=== PATIENT | male | born 1955 | race Asian ===

== ENCOUNTER → 2017-04-30 | Outpatient (CLI) | payer OTHER ==
[~2017-04-30] MED LIST: ALBU8.5H8 IH; ALEN35TA PO; AMLO5TAB66 PO; ASPI81TA33 PO; CLOP75 PO; FISH1CAP27 PO; FLUT16H NASAL; METO25TA6 PO; MOME13HF IH; MULT-1259 PO; PRAV20TA4 PO; RANI15SY2 PO; TIOT185 IH
== END | disposition home or self-care (01) ==
LOC: RADPV 15:32
PROVIDERS: ATTEND Specialist
DX: E04.9 Nontoxic goiter, unspecified (principal)
CPT/HCPCS: 76536